=== PATIENT | female | born 1965 | race Caucasian/White ===

== ENCOUNTER 2017-03-24 14:24 | Emergency (ER) | payer OTHER ==
--- NOTE | 2017-03-24 15:13 | ED Physician Documentation ---
PD HPI FEMALE - Stated complaint Stated Complaint: FEMALE - Chief complaint Chief Complaint: Abd Pain - History obtained from History obtained from: Patient - History of Present Illness Timing - onset: Today Timing - duration: Hours Timing - details: Gradual onset, Still present Associated symptoms: Back pain, Dysuria, Urinary frequency Similar symptoms before: Diagnosis (UTI and pyelo) Recently seen: Not recently seen - Additional information Additional information: 51-year-old female is began to develop some urinary symptoms in route to [facility] from [facility]. She was out of the car a number of times to urinate has some pain in her flank and some mild nausea. Review of Systems Constitutional: denies: Fever, Chills Eyes: denies: Decreased vision Ears: denies: Ear pain Nose: denies: Congestion Throat: denies: Sore throat Cardiac: denies: Chest pain / pressure, Palpitations Respiratory: denies: Dyspnea, Cough GI: reports: Nausea : reports: Dysuria, Frequency Skin: denies: Rash Musculoskeletal: reports: Back pain. denies: Neck pain, Extremity pain PD PAST MEDICAL HISTORY - Past Medical History Respiratory: COPD Endocrine/Autoimmune: Type 2 diabetes Other Past Medical History: home O2 - Past Surgical History Past Surgical History: Yes - Present Medications Home Medications: Ambulatory Orders Medication Instructions Recorded Confirmed Albuterol Sulfate [Proair 90 mcg IH Q4HR PRN 03/24/17 03/24/17 Respiclick] Insulin NPH Human Isophane 22 units SQ QPM PRN 03/24/17 03/24/17 [Humulin N] Metformin HCl 1 tab PO DAILY 03/24/17 03/24/17 Tiotropium [place] [Spiriva] 2 puffs IH DAILY 03/24/17 03/24/17 raNITIdine [Zantac] 2 tab PO DAILY 03/24/17 03/24/17 - Allergies Allergies/Adverse Reactions: Allergies Allergy/AdvReac Type Severity Reaction Status Date / Time Penicillins Allergy Emesis Verified 03/24/17 14:37 - Social History Does the pt smoke?: Yes Smoking Status: Former smoker Does the pt drink ETOH?: Yes Does the pt have substance abuse?: No - Immunizations Immunizations are current?: Yes PD ED PE NORMAL - Vitals Vital signs reviewed: Yes (tachy and hypertensive) - General General: Alert and oriented X 3, No acute distress, Well developed/nourished - HEENT HEENT: Atraumatic, PERRL, EOMI - Neck Neck: Supple, no meningeal sign - Cardiac Cardiac: RRR, No murmur - Respiratory Respiratory: No respiratory distress, Clear bilaterally - Abdomen Abdomen: Soft, Non tender - Back Back: No CVA TTP, No spinal TTP - Derm Derm: Normal color, Warm and dry, No rash - Extremities Extremities: No deformity, No edema - Neuro Neuro: No motor deficit, No sensory deficit Eye Opening: Spontaneous Motor: Obeys Commands Verbal: Oriented GCS Score: 15 - Psych Psych: Normal mood, Normal affect Results - Vitals Vitals: Vital Signs - 24 hr 03/24/17 14:31 Temperature 36.1 C L Heart Rate 107 H Respiratory 18 Rate Blood Pressure 175/89 H O2 Saturation 100 Oxygen O2 Source Nasal cannula - Labs Labs: Laboratory Tests 03/24/17 15:00 Urine Color YELLOW Urine Clarity CLEAR Urine pH 6.5 Ur Specific [place] 1.010 Urine Protein NEGATIVE Urine Glucose (UA) NEGATIVE Urine Ketones NEGATIVE Urine Occult Blood NEGATIVE Urine Nitrite NEGATIVE Urine Bilirubin NEGATIVE Urine Urobilinogen 0.2 (NORMAL) Ur Leukocyte Esterase NEGATIVE Ur Microscopic Review NOT INDICATED Procedures - Bedside sono Bedside sono by EMP: These bedside ultrasound the right kidney is imaged and is without evidence of hydronephrosis and it is sonographically nontender the left kidney is also imaged without evidence of hydronephrosis and it is also sonographically nontender. - IVC sono (time) 1500 Bedside IVC sono: IVC measures (cm) (1.44), IVC collapsed c insp (cm) (0.6), Euvolemia PD MEDICAL DECISION MAKING - ED course Complexity details: reviewed results, re-evaluated patient, considered differential, d/w patient ED course: 51 y/o female with UTI has only minimal flank pain to palpation. Her kidneys are sonographically nontender and her urinalysis is clear. She likely has some lumbar spasm. Departure - Departure Disposition: 01 Home, Self Care Clinical Impression: Lumbar paraspinal muscle spasm Condition: Stable Instructions: ED Spasm Back No Trauma Follow-Up: Your, doctor [Other]
[2017-03-24 15:18] LABS: BILIRUBIN,URINE NEGATIVE (NEGATIVE); GLUCOSE, URINE (UA) NEGATIVE (NEGATIVE); KETONES,URINE (UA) NEGATIVE (NEGATIVE); LEUKOCYTE ESTERASE, URINE NEGATIVE (NEGATIVE); NITRITE,URINE NEGATIVE (NEGATIVE); OCCULT BLOOD,URINE NEGATIVE (NEGATIVE); PH,URINE 6.5 PH (5.0-7.5); PROTEIN,URINE NEGATIVE (NEGATIVE); UROBILINOGEN,URINE 0.2 (NORMAL) E.U./dL (NORMAL)
[2017-03-24 15:25] LABS: CLARITY,URINE CLEAR (CLEAR)
[2017-03-24 16:05] VITALS: BP 162/92
== END 2017-03-24 16:06 | disposition home or self-care (01) ==
LOC: ED 14:24
DX: N39.0 Urinary tract infection, site not specified (principal); M62.838 Other muscle spasm; E11.9 Type 2 diabetes mellitus without complications; Z79.4 Long term (current) use of insulin; J44.9 Chronic obstructive pulmonary disease, unspecified; Z99.81 Dependence on supplemental oxygen; Z87.891 Personal history of nicotine dependence
CPT/HCPCS: 81001; 81003; 99283